=== PATIENT | male | born 1970 | race Caucasian/White ===

== ENCOUNTER → 2017-01-16 | Outpatient (CLI) | payer OTHER | LOC: CIMAGING 19:20 | PROVIDERS: ATTEND Family Medicine | DX: M47.816 Spondylosis without myelopathy or radiculopathy, lumbar region (principal) | CPT/HCPCS: 72100-PO ==

== ENCOUNTER → 2017-01-27 | Day surgery (SDC) | payer OTHER ==
[~2017-01-27] MED LIST: BUPIVACAINE 0.25% 30 ML SDV ONE; BUPIVACAINE 0.5% 10 ML SDV ONE; DEPO METHYLPREDNISOLONE 40 MG/ML SDV ONE; LIDOCAINE 1% 300 MG/30 ML SDV ONE
== END | disposition home or self-care (01) ==
LOC: FIMAGING 07:38
PROVIDERS: ATTEND Family Medicine
PROC: 3E0U3BZ Introduction of Anesthetic Agent into Joints, Percutaneous Approach (ICD-10-PCS; principal; 2017-01-27)
PROC: 3E0U3GC Introduction of Other Therapeutic Substance into Joints, Percutaneous Approach (ICD-10-PCS; principal; 2017-01-27)
DX: M46.1 Sacroiliitis, not elsewhere classified (principal)
CPT/HCPCS: J1030

== ENCOUNTER 2017-08-06 06:03 | Day surgery (SDC) | payer OTHER ==
[~2017-08-06 06:03] MED LIST changes: -BUPIVACAINE 0.25% 30 ML SDV ONE; -BUPIVACAINE 0.5% 10 ML SDV ONE; -DEPO METHYLPREDNISOLONE 40 MG/ML SDV ONE; +LIDOCAINE 1% 2 ML INJ ID PRN; -LIDOCAINE 1% 300 MG/30 ML SDV ONE; +LR 1,000 ML IV ONE
[2017-08-06] MEDS ORDERED: BACITRACIN ZINC 14.2 GM OINTTUBE TP ONE (06:46)
[2017-08-06] MEDS ORDERED: OXYMETAZOLINE 30 ML NASAL SPRAY ONE ×2 (06:46→07:08)
[2017-08-06] MEDS ORDERED: LIDOCAINE 1% 300 MG/30 ML SDV ONE (06:46)
--- NOTE | 2017-08-06 07:00 | PDGENHP ---
History & Physical Chief Complaint: Nasal obstruction, Supraglottic lesion History of Present Illness: Nasal obstruction, Supraglottic lesion Pertinent Past, Social, Family History: NKDA. Hypothyroid. HO smoking Relevant Physical Exam: A&O, NAD. Nasal obstruction. Hoarseness Cardiorespiratory Assessment: A/P -. Good for surgery
[2017-08-06] MEDS ORDERED: OXYMETAZOLINE 30 ML NASAL SPRAY EACHNARE ONE (07:01)
[2017-08-06] MEDS ORDERED: MIDAZOLAM 2 MG/2 ML VIAL IVP ONE (07:02)
--- NOTE | 2017-08-06 07:04 | PDANEPAE ---
ANE History of Present Illness turb/septoplasty ANE Past Medical History - Cardiovascular History Hx Hypertension: Yes Hx Arrhythmias: No Hx Chest Pain: No Hx Coronary Artery / Peripheral Vascular Disease: No Hx CHF / Valvular Disease: No Hx Palpitations: No Cardiovascular History Comment: pcp manages bp medications - Pulmonary History Hx COPD: No Hx Asthma/Reactive Airway Disease: No Hx Recent Upper Respiratory Infection: No Hx Oxygen in Use at Home: No Hx Sleep Apnea: No Sleep Apnea Screening Result - Last Documented: Negative - Neurologic History Hx Cerebrovascular Accident: No Hx Seizures: No Hx Dementia: No - Endocrine History Hx Diabetes: No Endocrine History Comment: graves disease. hx of thyroidectomy 1989 - Renal History Hx Renal Disorders: No - Liver History Hx Hepatic Disorders: No - Neurological & Psychiatric Hx Hx Neurological and Psychiatric Disorders: Yes Neurological / Psychiatric History Comment: anxiety- on fluoxetine - Cancer History Hx Cancer: No - Congenital Disorder History Hx Congenital Disorders: No - GI History Hx Gastrointestinal Disorders: No - Other Health History Other Health History: wears glasses. bilateral hearing aides - Chronic Pain History Chronic Pain: No - Surgical History Prior Surgeries: left shoulder scope 2015. michelle 02/2009. thyroidectomy 1989 ANE Review of Systems Review of Systems: - Exercise capacity METS (RN): 4 METS ANE Patient History - Allergies Allergies/Adverse Reactions: No Known Allergies Allergy (Verified 08/05/17 10:57) - Home Medications Home Medications: Levothyroxine 03/02/09 [Last Taken 08/06/17 04:00] Flexeril PO DAILY PRN 01/24/17 [Last Taken 08/06/17 04:00] Losartan Potassium 01/24/17 [Last Taken 08/06/17 04:00] FLUoxetine 08/05/17 [Last Taken 08/06/17 04:00] - NPO status NPO Since - Liquids (Date): 08/06/17 NPO Since - Liquids (Time): 04:00 NPO Since - Solids (Date): 08/05/17 NPO Since - Solids (Time): 19:30 - Anes Hx Anes Hx: no prior problems - Smoking Hx Smoking Status: Former smoker - Family Anes Hx Family Hx Anesthesia Complications: none ANE Labs/Vital Signs - Vital Signs Blood Pressure: 118/80 Heart Rate: 74 Respiratory Rate: 18 O2 Sat (%): 91 Height: 180.34 cm Weight: 113.398 kg ANE Physical Exam - Airway Mallampati Score: Class 2 Mouth exam: normal dental/mouth exam - Pulmonary Pulmonary: no respiratory distress - Cardiovascular Cardiovascular: regular rate and rhythym - ASA Status ASA Status: II ANE Anesthesia Plan Anesthesia Plan: general endotracheal anesthesia
[2017-08-06] MEDS ORDERED: fentaNYL 100 MCG/2 ML INJ ONE ×3 (07:06→10:23)
[2017-08-06] MEDS ORDERED: PROPOFOL 200 MG/20 ML VIAL ONE (07:07)
[2017-08-06] MEDS ORDERED: LIDOCAINE 2% 5 ML SDV ONE (07:07)
[2017-08-06] MEDS ORDERED: ROCURONIUM 100 MG/10 ML VIAL ONE (07:07)
[2017-08-06] MEDS ORDERED: SUCCINYLCHOLINE CHLORIDE 200 MG/10 ML SYR IVP ONE (07:07)
[2017-08-06] MEDS ORDERED: DEXAMETHASONE 4 MG/ML VIAL ONE ×2 (07:08→07:37)
[2017-08-06] MEDS ORDERED: MIDAZOLAM 2 MG/2 ML VIAL ONE (07:11)
[2017-08-06] MEDS ORDERED: PHENYLEPHRINE HCL 100 MCG/ML SYR ONE (08:01)
[2017-08-06] MEDS ORDERED: epHEDrine SULFATE 10 MG/ML SYR ONE (08:05)
[2017-08-06] MEDS ORDERED: SUGAMMADEX SODIUM 200 MG/2 ML VIAL IVP ONE ×2 (08:45)
[2017-08-06] MEDS ORDERED: ONDANSETRON 4 MG/2 ML VIAL IVP PRN (08:48)
[2017-08-06] MEDS ORDERED: ALBUTEROL 3 ML DEYVIAL IH PRN (08:48)
[2017-08-06] MEDS ORDERED: NALOXONE HCL 0.4 MG/ML INJ IVP PRN (08:48)
[2017-08-06] MEDS ORDERED: LR 500 ML IV PRN (08:48)
[2017-08-06] MEDS ORDERED: PHENYLEPHRINE HCL 100 MCG/ML SYR IVP PRN (08:48)
[2017-08-06] MEDS ORDERED: OXYMETAZOLINE 30 ML NASAL SPRAY EACHNARE PRN (09:37)
--- NOTE | 2017-08-06 09:40 | POSTOPPROG ---
Post Op Note Date of Operation: 08/06/17 Surgeon: Zander Macario Anesthesiologist: Nigel Anesthesia: GET(General Endotracheal) Pre-op Diagnosis: Nasal obstruction, Arytenoid mass Post-op Diagnosis: Nasal obstruction, Arytenoid mass Indication: Nasal obstruction, Arytenoid mass Procedure: Septo, turb, battens, DML w bx Findings: Nasal obstruction, Arytenoid mass Inf/Abcess present in the surg proc area at time of surgery?: No Depth: Deep Incisional (Fascial) EBL: Minimal Complications: none Specimen(s): none
--- NOTE | 2017-08-06 09:53 | POSTANESTH ---
Post Anesthetic Evaluation Cardiovascular Status: Normal, Stable Respiratory Status: Normal, Stable Level of Consciousness/Mental Status: Can Participate in Eval Pain Control: Adequate, Prn Tx Ordered Nausea/Vomiting Control: Adequate, Prn Tx Ordered Complications Possibly Related to Anesthesia: None Noted
[2017-08-06] MEDS: fentaNYL 100 MCG/2 ML INJ IVP PRN ×4 (10:02→10:42)
[2017-08-06 12:39] VITALS: BP 121/74
== END 2017-08-06 12:50 | disposition home or self-care (01) ==
LOC: FSGY 06:03
PROVIDERS: ATTEND Otolaryngology
DX: J34.2 Deviated nasal septum (principal); J34.3 Hypertrophy of nasal turbinates; J37.0 Chronic laryngitis; Z87.891 Personal history of nicotine dependence; E03.9 Hypothyroidism, unspecified; I10 Essential (primary) hypertension
CPT/HCPCS: J0171; J0330; J1100; J2250; J2370; J2704; J3010

== ENCOUNTER → 2018-05-14 | Outpatient (CLI) | payer OTHER | LOC: FCPNEURO 21:00 ==